=== PATIENT | male | born 1945 | race Caucasian/White ===

== ENCOUNTER 2020-03-10 17:15 | IRF | payer MEDICARE, MEDICAID, SELFPAY ==
[2020-03-10 17:20] VITALS: BP 142/84; PULSE 53; RESP 18; TEMP 37.3; O2SAT 93
--- NOTE | 2020-03-10 17:47 | PC.NURSE ---
This patient, Gene Sahu Jr., was admitted to [facility] Room 224-01. Patient/family oriented to hospital policies and general routines including ID bracelet, bed and alarms, visiting hours, pain management, procedures, bathroom and other care routines, personal items, smoking policy, room service/diet, and visiting hours. Valuables list has been completed. Information on how to activate the Rapid Response Team has been discussed. Patient/Family are encouraged to report perceived risks to care and to ask questions if they do not understand what they are told or what they should do.
[2020-03-10] MEDS: ASPIRIN 81 MG ENTERIC TABLET PO (20:32)
[2020-03-10] MEDS: lisinopriL 20 MG TABLET 40 MG PO (20:32)
[2020-03-10] MEDS: METOPROLOL TARTRATE 25 MG TABLET PO (20:33)
[2020-03-10] MEDS: SIMVASTATIN 20 MG TABLET 80 MG PO (20:35)
[2020-03-10] MEDS: GABAPENTIN 300 MG CAPSULE PO (20:35)
[2020-03-10] MEDS: PAROXETINE 10 MG TABLET 30 MG PO (20:35)
[2020-03-10 22:00] VITALS: BP 114/76; PULSE 127; RESP 18; TEMP 37.2; O2SAT 90
[2020-03-11 05:14] LABS: Basophils Percent Auto 0.4 % (0.2-1.2); Eosinophils Absolute Auto 0.3 K/mm3 (0-0.3); Eosinophils Percent Auto 4.1 % (0-4.4); Hematocrit 30.3 % (42.0-52.0); Hemoglobin 9.9 g/dL (14.0-18.0); Immature Granulocyte Absolute 0.09 K/mm3 (0.00-0.031); Immature Granulocyte Percent A 1.1 % (0-0.5); Lymphocytes Absolute Auto 0.92 K/mm3 (0.9-3.2); Lymphocytes Percent Auto 11.4 % (18.3-44.2); Mean Corpuscular HGB Conc 32.7 g/dl (32-36); Mean Corpuscular Hemoglobin 31.2 pg (26-34); Mean Corpuscular Volume 95.6 fl (80-100); Mean Platelet Volume 9.5 fl (7.4-10.4); Monocytes Absolute Auto 0.6 K/mm3 (0.1-0.6); Monocytes Percent Auto 7.1 % (2.6-8.5); Neutrophils Absolute Auto 6.1 K/mm3 (1.3-6.7); Neutrophils Percent Auto 75.9 % (45.5-73.1); Platelet Count Result 331 k/mm3 (150-375); Red Blood Count 3.17 M/mm3 (4.6-6.20); Red Cell Distribution Width 13.8 % (11.5-14.5); White Blood Count 8.1 K/mm3 (4.5-10.0)
[2020-03-11 05:40] LABS: Blood Urea Nitrogen 13 mg/dL (9-20); Calcium 8.9 mg/dL (8.4-10.2); Carbon Dioxide 26 mmol/L (22-30); Chloride 105 mmol/L (98-107); Estimated Glomerular Filt Rate > 60; Glucose 116 mg/dL (75-110); Potassium 3.5 mmol/L (3.4-5.0); Sodium 137 mmol/L (137-145)
[2020-03-11 06:00] VITALS: BP 126/59; PULSE 55; RESP 18; TEMP 36.9; O2SAT 95
[2020-03-11 08:00] VITALS: PULSE 60; RESP 18; O2SAT 95
[2020-03-11] MEDS: GABAPENTIN 300 MG CAPSULE PO ×3 (10:07→16:56)
[2020-03-11 10:08] VITALS: PULSE 60
[2020-03-11] MEDS: METOPROLOL TARTRATE 25 MG TABLET PO ×2 (10:08→20:30)
[2020-03-11] MEDS: FENOFIBRATE 160 MG TABLET PO (10:08)
[2020-03-11] MEDS: PANTOPRAZOLE 40 MG TABLET PO (10:09)
[2020-03-11] MEDS: AMLODIPINE BESYLATE 5 MG TABLET 10 MG PO (10:09)
--- NOTE | 2020-03-11 13:18 | REHAB_ITS ---
DATE OF SERVICE: PRIMARY REHABILITATION IMPAIRMENT CATEGORY: Amputation of the lower extremity with an etiological diagnosis of peripheral vascular disease. He is status post new left [id number] amputation. The patient was examined on 03/11/2020 at 11 o'clock. HISTORY OF PRESENT ILLNESS: A 74 years old right-handed male with past medical history of: 1. Peripheral vascular disease. 2. Previous right above-knee amputation. 3. Coronary artery disease with history of coronary artery bypass grafting x3. 4. Chronic obstructive pulmonary disease. 5. Peptic ulcer disease, initially presented to [facility] on 03/04/2020 via EMS, complaining of black stools along with vomiting and NG tube was placed in. Gastroenterologists was consulted. The patient was no longer vomiting and hemodynamically is stable, so it was planned to treat the patient with proton pump inhibitors along with the monitoring of the hemoglobin and avoidance of the nonsteroidal antiinflammatory medication and anticoagulation medication if possible. NG tube was discontinued. He also was noted to have urinary tract infection, for which he was treated with antibiotics. PHYSICAL EXAMINATION: Patient reveals several scars and poorly healing ulcers on the patient's left foot. Vascular Surgery was consulted, who noted extensive ischemic changes and gangrene of the left foot along with the contracture of the left knee. At that time, it was felt that limb was not salvageable, and the patient would require amputation which he did above the left knee on 01/07/2020. Postoperatively, he developed pain, anemia, hypertension, and atrial fibrillation. The pain was being managed with oral pain medication. Hemodynamically was stable, but needed to be monitored. Atrial fibrillation was treated with metoprolol to prevent the recurrence as anticoagulation was being avoided due to GI bleed. Hypertension was also treated with antihypertensive medication. The patient has not traveled outside the [place] or had contact with someone who is ill that has traveled outside the [place] in the past 21 days. He has not traveled to an area of the [place] that he experienced any known transmission of the coronavirus, has not had close personal contact with anyone that has the coronavirus. The patient himself does not have a fever, not experiencing lower respiratory illness symptoms, though he does have COPD by history along with the bronchial asthma and emphysema at the baseline. Therapy was initiated at acute care facility and the patient was transferred to us from [facility] on 03/10/2020. SURGERY OR FALL: The patient has had major surgery in the last 100 days as mentioned above, but he has had no falls in the last year and has had no fall with any injury in the last year. PAST MEDICAL HISTORY: Bilateral cataracts, hearing deficit, coronary artery disease with history of cardiac catheterization, hypertension, hyperlipidemia, myocardial infarction in 2006, peripheral vascular disease, bronchial asthma, COPD, emphysema, currently smoking, peptic ulcer disease, hernia as a child. GI bleed, hepatitis, hiatal hernia, inflammatory bowel disease, irritable bowel syndrome, liver disease, cirrhosis, pancreatitis, chronic kidney disease, nonfunctioning left kidney, urgency, back pain, right above the knee amputation, and peripheral neuropathy. PAST SURGICAL HISTORY: Peripheral bypass, right femoral endarterectomy, PIERCER stenting on 02/17/2017, appendectomy in 1962, right inguinal surgery as an , right total hip replacement, left knee surgery, triple bypass, left foot surgery, wiring bilateral jaw in 1962, partial gastrectomy in 1962, ORIF right femur in 2013, right above knee amputation 12/29/2017, left lower extremity angiogram with stenting on 09/28/2018.
[2020-03-11 14:00] VITALS: BP 114/61; PULSE 70; RESP 18; TEMP 36.6; O2SAT 96
[2020-03-11 20:30] VITALS: PULSE 70
[2020-03-11] MEDS: lisinopriL 20 MG TABLET 40 MG PO (20:30)
[2020-03-11] MEDS: ASPIRIN 81 MG ENTERIC TABLET PO (20:30)
[2020-03-11] MEDS: SIMVASTATIN 20 MG TABLET 80 MG PO (20:30)
[2020-03-11] MEDS: PAROXETINE 10 MG TABLET 30 MG PO (20:30)
[2020-03-11 22:00] VITALS: BP 122/56; PULSE 68; RESP 18; TEMP 37; O2SAT 98
[2020-03-12 06:00] VITALS: BP 135/50; PULSE 62; RESP 20; TEMP 37.2; O2SAT 95
[2020-03-12] MEDS: GABAPENTIN 300 MG CAPSULE PO ×3 (08:36→17:22)
[2020-03-12] MEDS: PANTOPRAZOLE 40 MG TABLET PO (08:36)
[2020-03-12] MEDS: FENOFIBRATE 160 MG TABLET PO (08:36)
[2020-03-12] MEDS: AMLODIPINE BESYLATE 5 MG TABLET 10 MG PO (08:36)
[2020-03-12 08:37] VITALS: PULSE 62
[2020-03-12] MEDS: METOPROLOL TARTRATE 25 MG TABLET PO ×2 (08:37→20:32)
[2020-03-12 14:00] VITALS: BP 96/60; PULSE 70; RESP 18; TEMP 37; O2SAT 96
[2020-03-12 20:32] VITALS: PULSE 78
[2020-03-12] MEDS: PAROXETINE 10 MG TABLET 30 MG PO (20:32)
[2020-03-12] MEDS: ASPIRIN 81 MG ENTERIC TABLET PO (20:32)
[2020-03-12] MEDS: SIMVASTATIN 20 MG TABLET 80 MG PO (20:32)
[2020-03-12] MEDS: lisinopriL 20 MG TABLET 40 MG PO (20:32)
[2020-03-12 22:00] VITALS: BP 110/65; PULSE 75; RESP 19; TEMP 38.2; O2SAT 91
[2020-03-13 06:00] VITALS: BP 140/64; PULSE 66; RESP 19; TEMP 36.9; O2SAT 90
[2020-03-13] MEDS: GABAPENTIN 300 MG CAPSULE PO ×3 (08:29→16:53)
[2020-03-13 08:30] VITALS: PULSE 72
[2020-03-13] MEDS: METOPROLOL TARTRATE 25 MG TABLET PO ×2 (08:30→20:50)
[2020-03-13] MEDS: FENOFIBRATE 160 MG TABLET PO (08:35)
[2020-03-13] MEDS: ERGOCALCIFEROL 50,000 UNIT CAPSULE 50000 UNITS PO (08:35)
[2020-03-13] MEDS: PANTOPRAZOLE 40 MG TABLET PO (08:35)
[2020-03-13] MEDS: AMLODIPINE BESYLATE 5 MG TABLET 10 MG PO (08:35)
[2020-03-13 10:26] VITALS: O2SAT 97
--- NOTE | 2020-03-13 11:38 | WPDNEURORHBP ---
Subjective Date/time seen: new left above knee amputation with resultant bilateral [id number]/[id number]/20 11:38 Review of Systems Review of Systems: All systems reviewed & are unremarkable except as noted in HPI and below Functional Status Transfers Ability Ability to Transfer In/Out of Chair: Maximum Assistance X 1 Exam Const: General: cooperative, healthy appearing, comfortable and no acute distress Nutritional Appearance: average body habitus Orientation/consciousness: oriented to person, oriented to place and oriented to time Limitations: no limitations HENMT: Head: normocephalic Ears: hearing grossly normal bilaterally General nose exam: Normal external nose present Face and sinus: normal facial exam Eyes: General: appearance normal, both eyes and all related structures Neck: Neck: full ROM Resp: Effort & Inspection: normal respiratory effort and able to speak in complete sentences Auscultation: clear to auscultation bilaterally Cardio: Rate: regular rate Rhythm: regular rhythm GI: Auscultation: normal bowel sounds Skin: General skin exam: no rashes or lesions noted Neuro: General: patient oriented x3 and moves all extremities Cranial nerves: Yes CN's II-XII intact bilaterally, Yes Equal, round and reactive pupils present, Yes Nystagmus not present, Yes Normal facial strength present, Yes Midline tongue present, Yes Symmetric palate elevation present, Yes Ability to bilaterally rotate head present and Yes Ability to bilaterally elevate shoulders present Cognition (Neuro): normal cognition Speech: normal speech Motor exam (neuro): Normal motor muscle tone present throughout (bilateral above knee amputee) Coordination: [id number] test normal Psych: Appearance: grossly normal Speech and movement: Normal speech and movement present Affect: normal affect Attitude: cooperative Thought process: Normal thought process present Thought content: Yes Normal thought content present Insight: Good insight present (Psych) Objective Data Vital Signs Vital Signs: Vital Signs - 24 hr 03/12/20 14:00 03/12/20 20:32 03/12/20 22:00 Temperature 37.0 C 38.2 C H Pulse Rate 70 78 75 Respiratory Rate 18 19 Blood Pressure 96/60 L 110/65 Pulse Oximetry 96 91 03/13/20 06:00 03/13/20 08:30 03/13/20 10:26 Temperature 36.9 C Pulse Rate 66 72 Respiratory Rate 19 Blood Pressure 140/64 Pulse Oximetry 90 97 Intake/Output Intake/Output: Intake & Output 0403/11/20 03/12/20 03/13/20 23:59 23:59 23:59 23:59 Intake Total 900 440 240 Balance 900 440 240 Meds/Results Medications: Active Medications Generic Name Dose Route Start Last Admin Trade Name Freq PRN Reason Stop Dose Admin Hydrocodone Bitart/Acetaminophen 1 tab 03/10/20 18:11 03/13/20 05:50 [place] 7.5-325 Mg PO 1 tab Q4H PRN Administration Pain (Scale Score 7-10) Albuterol 2 puff 03/10/20 18:30 Proventil Hfa INHALATION QID PRN Shortness Of Breath Or Wheezing Amlodipine Besylate 10 mg 03/11/20 09:00 03/13/20 08:35 Norvasc PO 10 mg DAILY CHUNG Administration Aspirin 81 mg 03/10/20 21:00 03/12/20 20:32 Aspirin Ec PO 81 mg HS CHUNG Administration Ergocalciferol 50,000 unit 03/13/20 09:00 03/13/20 08:35 Drisdol PO 50,000 unit Mo@0900 CHUNG Administration Fenofibrate 160 mg 03/11/20 09:00 03/13/20 08:35 Fenofibrate PO 160 mg DAILY CHUNG Administration Gabapentin 300 mg 03/10/20 18:35 03/13/20 08:29 Neurontin PO 300 mg TID CHUNG Administration Lisinopril 40 mg 03/10/20 21:00 03/12/20 20:32 Prinivil PO 40 mg HS CHUNG Administration Metoprolol Tartrate 25 mg 03/10/20 21:00 03/13/20 08:30 Lopressor PO 25 mg Q12HR CHUNG Administration Naproxen 500 mg 03/10/20 18:11 Naproxen PO BID PRN Pain (Scale Score 4-6) Nitroglycerin 0.4 mg 03/10/20 18:11 Nitrostat Subl 0.4 Mg (1/150) SUBLINGUAL Q5MIN PRN Chest Pain
[2020-03-13 12:44] VITALS: BMI 56.7
[2020-03-13 14:00] VITALS: BP 101/75; PULSE 68; RESP 20; TEMP 36.6; O2SAT 94
--- NOTE | 2020-03-13 16:11 | RPD ---
INDIVIDUALIZED PLAN OF CARE FOR Gene Sahu Jr. Brief Synthesis of Pre-Admission Screen, Post-Admission Evaluation and Therapy Evaluations: The patient presents to rehab with peripheral vascular disease s/p left AKA. Comorbidities include acute pain, hypertension, hyperlipidemia, coronary artery disease, peptic ulcer disease, hematemesis, melena, renal calculi, chronic obstructive pulmonary disease, hard of hearing, asthma, emphysema, hiatal hernia, inflammatory bowel disease, irritable bowel syndrome, liver disease, chronic kidney disease, previous right AKA, new left AKA, peripheral neuropathy, acute blood loss anemia, and urinary tract infection. The patient requires physician services for medical oversight, management of post-op complications in the setting of present comorbidities, and pain management. Post-op complications have included acute postoperative pain, acute blood loss anemia, hypertension, and atrial fibrillation. The patient requires nursing services for anticoagulation therapy, DVT prophylactics, infection protection, medication management and education, pressure relief, and wound care. The patient will be taught how to wrap the residual limb and how to monitor their skin for promotion of healing. Deficits include:ADLs, Balance, Endurance, Family Training/Education, Mobility, Pain Management, ROM, Safety, Strength, and Transfers Supply Clerk/Case Management for: Discharge Planning and Patient/Family Counseling Physical Therapy: 5 days per week for 90 minutes. Treatments may include: Therapeutic Exercise, Gait Training, Neuromuscular Re-education, Transfer Training, Community Reintegration, Bed Mobility, Patient/Family Education, Wheelchair Mobility Group Therapy/Concurrent Therapy Rationales: -Improve attention span during functional activities in a distracted environment. -Enhance problem solving and/or adequate judgment skills during functional activities in a distracted environment. -Promote increased safety awareness in a distracted environment to reduce fall risk with functional tasks, transfers, and ambulation to allow a more safe, self-sufficient return to the home environment. -Improve dynamic balance skills to promote safety and independence with functional activities in a distracted environment for maximum gain. Occupational Therapy: 5 days per week for 90 minutes. Treatments may include: Therapeutic Exercise, Therapeutic Activity, Cognitive Training, Self-Care Transfer Training, Community Reintegration, Home Management, Patient/Family Education, Wheelchair Mobility Training, Energy Conservation Training Group Therapy/Concurrent Therapy Rationales: -Allow therapist to observe and teach generalization and carry-over of skills learned in individual therapy. -Enhance problem solving and sequencing skills during therapeutic activities in a distracted environment. -Promote increased safety awareness in a realistic setting to reduce fall risk with functional tasks due to visual and verbal distractions. -Increase functional level with ADLs, ADL transfers and use of adaptive equipment through therapeutic activities with others while promoting safety to allow a more safe, self-sufficient return home. Medical Prognosis: Good Anticipated Length of Stay: 10 days Rehab Goals: Eating Goal: 06-Independent Oral Hygiene Goal: 06-Independent Toileting Hygiene Goal: 06-Independent Shower/Bathe Self Goal: 06-Independent Upper Body Dressing Goal: 06-Independent Lower Body Dressing Goal: 06-Independent Putting On/Taking Off Footwear Goal: 09-Not Applicable Rolling Left and Right Goal: 06-Independent Sit to Lying Goal: 06-Independent Lying to Sitting on Side of Bed Goal: 06-Independent Sit to Stand Goal: 09-Not Applicable Chair/Mdr-wy-Hoife Transfer Goal: 06-Independent Toilet Transfer Goal: 06-Independent Car Transfer Goal: 03-Partial/Moderate Assistance Walk 10' Goal: 09-Not Applicable Walk 50' with Two Turns Goal: 09-Not Applicable Walk
[2020-03-13] MEDS: PAROXETINE 10 MG TABLET 30 MG PO (20:49)
[2020-03-13 20:50] VITALS: PULSE 72
[2020-03-13] MEDS: ASPIRIN 81 MG ENTERIC TABLET PO (20:50)
[2020-03-13] MEDS: SIMVASTATIN 20 MG TABLET 80 MG PO (20:50)
[2020-03-13] MEDS: lisinopriL 20 MG TABLET 40 MG PO (20:50)
[2020-03-13 21:19] VITALS: BP 141/56; PULSE 62; RESP 16; TEMP 36; O2SAT 99
[2020-03-14] VITALS (8 sets, daily range): BP systolic 109–148; BP diastolic 51–53; PULSE 67–101; RESP 18–20; TEMP 36.3–36.9; O2SAT 92–100
[2020-03-14] MEDS: PANTOPRAZOLE 40 MG TABLET PO (08:33)
[2020-03-14] MEDS: GABAPENTIN 300 MG CAPSULE PO ×3 (08:33→17:53)
[2020-03-14] MEDS: AMLODIPINE BESYLATE 5 MG TABLET 10 MG PO (08:33)
[2020-03-14] MEDS: METOPROLOL TARTRATE 25 MG TABLET PO ×2 (08:34→21:00)
[2020-03-14] MEDS: FENOFIBRATE 160 MG TABLET PO (08:34)
--- NOTE | 2020-03-14 12:53 | WPDNEURORHBP ---
Subjective Date/time seen: 03/14/20 12:53 Interval history: this 68 sink year old gentleman who is here after having had a fresh and new left with a new mutation superimposed on the previous right above the knee amputation related to significant peripheral vascular disease. The patient pain is fairly under control he does have the comorbidity of the peripheral vascular disease coronary artery disease with history of coronary artery bypass chronic obstructive pulmonary disease and peptic ulcer disease The patient denies any fever chills sore throat headache nausea vomiting double vision blurred vision chest pain and shortness of breath diarrhea abdominal pain or constipation Review of Systems Review of Systems: All systems reviewed & are unremarkable except as noted in HPI and below Functional Status Transfers Ability Ability to Transfer In/Out of Chair: Contact Guard Exam Const: General: comfortable and no acute distress HENMT: General nose exam: Normal nares present Mouth: Yes moist mucous membranes Eyes: General: appearance normal, both eyes and all related structures Neck: Neck: supple and no JVD Resp: Effort & Inspection: normal respiratory effort Other: generalized mild rhonchi Cardio: Rate: regular rate Rhythm: regular rhythm GI: GI Palp: Yes Soft to palpation Auscultation: normal bowel sounds Skin: General skin exam: normal color and no rashes or lesions noted Neuro: Other: patient is awake and alert Kell to time place person has normal speech and language function normal cranial exam webber upper extremity strength is 4.5/5 lower extremity is stump strength is 4- 4 5 evidence of peripheral vascular disease and the fresh left above the knee amputation Extrem: Other: bilateral above the amputation Psych: Mental Status: mental status grossly normal Objective Data Vital Signs Vital Signs: Vital Signs - 24 hr 03/13/20 14:00 03/13/20 20:50 03/13/20 21:19 Temperature 36.6 C 36.0 C L Pulse Rate 68 72 62 Respiratory Rate 20 16 Blood Pressure 101/75 141/56 H Pulse Oximetry 94 99 03/14/20 06:00 03/14/20 08:00 03/14/20 08:34 Temperature 36.3 C L Pulse Rate 76 76 76 Respiratory Rate 20 20 Blood Pressure 132/53 L Pulse Oximetry 96 96 03/14/20 11:00 Temperature Pulse Rate 91 Respiratory Rate Blood Pressure Pulse Oximetry 100 Intake/Output Intake/Output: Intake & Output 03/11/20 03/12/20 03/13/20 03/14/20 23:59 23:59 23:59 23:59 Intake Total 900 440 840 240 Balance 900 440 840 240 Meds/Results Medications: Active Medications Generic Name Dose Route Start Last Admin Trade Name Freq PRN Reason Stop Dose Admin Hydrocodone Bitart/Acetaminophen 1 tab 03/10/20 18:11 03/14/20 04:38 [place] 7.5-325 Mg PO 1 tab Q4H PRN Administration Pain (Scale Score 7-10) Albuterol 2 puff 03/10/20 18:30 Proventil Hfa INHALATION QID PRN Shortness Of Breath Or Wheezing Amlodipine Besylate 10 mg 03/11/20 09:00 03/14/20 08:33 Norvasc PO 10 mg DAILY CHUNG Administration Aspirin 81 mg 03/10/20 21:00 03/13/20 20:50 Aspirin Ec PO 81 mg HS CHUNG Administration Ergocalciferol 50,000 unit 03/13/20 09:00 03/13/20 08:35 Drisdol PO 50,000 unit Mo@0900 CHUNG Administration Fenofibrate 160 mg 03/11/20 09:00 03/14/20 08:34 Fenofibrate PO 160 mg DAILY CHUNG Administration Gabapentin 300 mg 03/10/20 18:35 03/14/20 08:33 Neurontin PO 300 mg TID CHUNG Administration Lisinopril 40 mg 03/10/20 21:00 03/13/20 20:50 Prinivil PO 40 mg HS CHUNG Administration Metoprolol Tartrate 25 mg 03/10/20 21:00 03/14/20 08:34 Lopressor PO 25 mg Q12HR CHUNG Administration Naproxen 500 mg 03/10/20 18:11 Naproxen PO BID PRN Pain (Scale Score 4-6) Nitroglycerin 0.4 mg 03/10/20 18:11 Nitrostat Subl 0.4 Mg (1/150) SUBLINGUAL Q5MIN PRN Chest Pain Pantoprazole Sodium 40 mg 03/11/20 09:00
[2020-03-14] MEDS: ASPIRIN 81 MG ENTERIC TABLET PO (20:58)
[2020-03-14] MEDS: lisinopriL 20 MG TABLET 40 MG PO (20:58)
[2020-03-14] MEDS: SIMVASTATIN 20 MG TABLET 80 MG PO (21:02)
[2020-03-14] MEDS: PAROXETINE 10 MG TABLET 30 MG PO (21:02)
[2020-03-15 06:00] VITALS: BP 149/60; PULSE 98; RESP 18; TEMP 36.9; O2SAT 89
[2020-03-15] MEDS: NAPROXEN 500 MG TABLET PO (06:33)
[2020-03-15 08:00] VITALS: PULSE 92; RESP 18; O2SAT 89
--- NOTE | 2020-03-15 08:16 | PCPTNOTE ---
Addendum entered by Carmen Palmer, CARBONATION EQUIPMENT TENDER 03/16/20 16:07: Patient will need 32 inch length slide board for safe wheelchair to car transfer. Original Note: Gene Sahu Jr. was evaluated for a slide board on 03/15/2020 by this physical therapist property management assistant. The slide board will resolve patient's mobility limitations and will be used for ADL's within the home. The patient can safely use the slide board. ?The slide board will resolve the patient?s mobility deficits, including decreased strength, decreased endurance and decreased balance.
[2020-03-15] MEDS: AMLODIPINE BESYLATE 5 MG TABLET 10 MG PO (08:45)
[2020-03-15] MEDS: GABAPENTIN 300 MG CAPSULE PO ×3 (08:45→17:17)
[2020-03-15] MEDS: PANTOPRAZOLE 40 MG TABLET PO (08:45)
[2020-03-15 08:50] VITALS: PULSE 92
[2020-03-15] MEDS: METOPROLOL TARTRATE 25 MG TABLET PO ×2 (08:50→20:13)
[2020-03-15] MEDS: FENOFIBRATE 160 MG TABLET PO (08:51)
[2020-03-15 14:00] VITALS: BP 111/57; PULSE 74; RESP 20; TEMP 36.7; O2SAT 94
--- NOTE | 2020-03-15 14:51 | WPDNEURORHBP ---
Subjective Date/time seen: 03/15/20 14:51 Interval history: this very pleasant 74-year-old gentleman is here after having had left above the knee amputation with previous right above the knee amputation a few years ago is doing fairly well happy with the care and denies any fever chills sore throat headache nausea vomiting diarrhea abdominal pain Review of Systems Review of Systems: All systems reviewed & are unremarkable except as noted in HPI and below Functional Status Transfers Ability Ability to Transfer In/Out of Chair: Contact Guard Exam Const: General: comfortable and no acute distress HENMT: General nose exam: Normal nares present Mouth: Yes moist mucous membranes Eyes: General: appearance normal, both eyes and all related structures Neck: Neck: supple and no JVD Resp: Effort & Inspection: normal respiratory effort Auscultation: clear to auscultation bilaterally Cardio: Rate: regular rate Rhythm: regular rhythm GI: GI Palp: Yes Soft to palpation Auscultation: normal bowel sounds Skin: General skin exam: normal color and no rashes or lesions noted Neuro: Other: patient is awake and alert well oriented time place and person is speech and language function normal cranial exam webber normal upper extremity strength is 4.5/5 the stumps of the lower extremity is 4- over 5 he is engage in therapy and moving forward Extrem: Other: the left above the knee amputation site is clean Psych: Mental Status: mental status grossly normal Objective Data Vital Signs Vital Signs: Vital Signs - 24 hr 03/14/20 20:28 03/14/20 21:00 03/14/20 22:00 Temperature 36.9 C Pulse Rate 101 H 101 H Respiratory Rate 19 Blood Pressure 148/52 H Pulse Oximetry 93 92 03/15/20 06:00 03/15/20 08:00 03/15/20 08:50 Temperature 36.9 C Pulse Rate 98 92 92 Respiratory Rate 18 18 Blood Pressure 149/60 H Pulse Oximetry 89 L 89 L 03/15/20 14:00 Temperature 36.7 C Pulse Rate 74 Respiratory Rate 20 Blood Pressure 111/57 L Pulse Oximetry 94 Intake/Output Intake/Output: Intake & Output 03/12/20 03/13/20 03/14/20 03/15/20 23:59 23:59 23:59 23:59 Intake Total 440 840 560 480 Balance 440 840 560 480 Meds/Results Medications: Active Medications Generic Name Dose Route Start Last Admin Trade Name Freq PRN Reason Stop Dose Admin Hydrocodone Bitart/Acetaminophen 1 tab 03/10/20 18:11 03/14/20 23:38 [place] 7.5-325 Mg PO 1 tab Q4H PRN Administration Pain (Scale Score 7-10) Albuterol 2 puff 03/10/20 18:30 Proventil Hfa INHALATION QID PRN Shortness Of Breath Or Wheezing Amlodipine Besylate 10 mg 03/11/20 09:00 03/15/20 08:45 Norvasc PO 10 mg DAILY CHUNG Administration Aspirin 81 mg 03/10/20 21:00 03/14/20 20:58 Aspirin Ec PO 81 mg HS CHUNG Administration Ergocalciferol 50,000 unit 03/13/20 09:00 03/13/20 08:35 Drisdol PO 50,000 unit Mo@0900 CHUNG Administration Fenofibrate 160 mg 03/11/20 09:00 03/15/20 08:51 Fenofibrate PO 160 mg DAILY CHUNG Administration Gabapentin 300 mg 03/10/20 18:35 03/15/20 13:43 Neurontin PO 300 mg TID CHUNG Administration Lisinopril 40 mg 03/10/20 21:00 03/14/20 20:58 Prinivil PO 40 mg HS CHUNG Administration Metoprolol Tartrate 25 mg 03/10/20 21:00 03/15/20 08:50 Lopressor PO 25 mg Q12HR CHUNG Administration Naproxen 500 mg 03/10/20 18:11 03/15/20 06:33 Naproxen PO 500 mg BID PRN Administration Pain (Scale Score 4-6) Nitroglycerin 0.4 mg 03/10/20 18:11 Nitrostat Subl 0.4 Mg (1/150) SUBLINGUAL Q5MIN PRN Chest Pain Pantoprazole Sodium 40 mg 03/11/20 09:00 03/15/20 08:45 Protonix PO 40 mg QAM CHUNG Administration Paroxetine HCl 30 mg 03/10/20 21:00 03/14/20 21:02 Paxil PO 30 mg HS CHUNG Administration Simvastatin 80 mg 03/10/20 21:00 03/14/20 21:02 Zocor PO 80 mg HS CHUNG Administration Tiotropium [place] 1
[2020-03-15] MEDS: ASPIRIN 81 MG ENTERIC TABLET PO (20:12)
[2020-03-15 20:13] VITALS: PULSE 88
[2020-03-15] MEDS: lisinopriL 20 MG TABLET 40 MG PO (20:13)
[2020-03-15] MEDS: SIMVASTATIN 20 MG TABLET 80 MG PO (20:13)
[2020-03-15] MEDS: PAROXETINE 10 MG TABLET 30 MG PO (20:13)
[2020-03-15 22:00] VITALS: BP 144/59; PULSE 88; RESP 19; TEMP 36.8; O2SAT 98
[2020-03-16] VITALS (8 sets, daily range): BP systolic 116–147; BP diastolic 56–75; PULSE 70–92; RESP 18–20; TEMP 36.6–37.1; O2SAT 92–99
[2020-03-16] MEDS: METOPROLOL TARTRATE 25 MG TABLET PO ×2 (08:25→20:18)
[2020-03-16] MEDS: GABAPENTIN 300 MG CAPSULE PO ×3 (08:25→17:38)
[2020-03-16] MEDS: AMLODIPINE BESYLATE 5 MG TABLET 10 MG PO (08:26)
[2020-03-16] MEDS: PANTOPRAZOLE 40 MG TABLET PO (08:26)
[2020-03-16] MEDS: FENOFIBRATE 160 MG TABLET PO (08:26)
--- NOTE | 2020-03-16 11:41 | WPDNEURORHBP ---
Subjective Date/time seen: 03/16/20 11:41 Interval history: this 74-year-old gentleman is here after having had left above the knee amputation and the previous right above the knee amputation few years ago his doing of well in the rehab denies any complaints particularly denies any fever chills sore throat chest pain shortness of breath headache nausea and vomiting his still requiring the 2 liters of oxygen because once he does the therapy his oxygen saturation round drops to 87 % Review of Systems Review of Systems: All systems reviewed & are unremarkable except as noted in HPI and below Functional Status Transfers Ability Ability to Transfer In/Out of Chair: Contact Guard Exam Const: General: comfortable and no acute distress HENMT: General nose exam: Normal nares present Mouth: Yes moist mucous membranes Eyes: General: appearance normal, both eyes and all related structures Neck: Neck: supple and no JVD Resp: Effort & Inspection: normal respiratory effort Auscultation: clear to auscultation bilaterally Cardio: Rate: regular rate Rhythm: regular rhythm GI: GI Palp: Yes Soft to palpation Auscultation: normal bowel sounds Skin: General skin exam: normal color and no rashes or lesions noted Neuro: Other: patient's mental status is normal cranial exam is in normal upper extremity strength is 4.5/5 of the lower stumps above the knee post amputation are clean he needs still assistance in the lot of activities of daily living Extrem: Other: bilateral above the knee amputation Psych: Mental Status: mental status grossly normal Objective Data Vital Signs Vital Signs: Vital Signs - 24 hr 03/15/20 14:00 03/15/20 20:13 03/15/20 22:00 Temperature 36.7 C 36.8 C Pulse Rate 74 88 88 Respiratory Rate 20 19 Blood Pressure 111/57 L 144/59 H Pulse Oximetry 94 98 03/16/20 06:00 03/16/20 08:00 03/16/20 08:25 Temperature 37.1 C Pulse Rate 88 88 88 Respiratory Rate 18 18 Blood Pressure 147/61 H Pulse Oximetry 97 97 Intake/Output Intake/Output: Intake & Output 03/13/20 03/14/20 03/15/20 03/16/20 23:59 23:59 23:59 23:59 Intake Total 840 560 840 240 Balance 840 560 840 240 Meds/Results Medications: Active Medications Generic Name Dose Route Start Last Admin Trade Name Freq PRN Reason Stop Dose Admin Hydrocodone Bitart/Acetaminophen 1 tab 03/10/20 18:11 03/15/20 20:17 [place] 7.5-325 Mg PO 1 tab Q4H PRN Administration Pain (Scale Score 7-10) Albuterol 2 puff 03/10/20 18:30 Proventil Hfa INHALATION QID PRN Shortness Of Breath Or Wheezing Amlodipine Besylate 10 mg 03/11/20 09:00 03/16/20 08:26 Norvasc PO 10 mg DAILY CHUNG Administration Aspirin 81 mg 03/10/20 21:00 03/15/20 20:12 Aspirin Ec PO 81 mg HS CHUNG Administration Ergocalciferol 50,000 unit 03/13/20 09:00 03/13/20 08:35 Drisdol PO 50,000 unit Mo@0900 CHUNG Administration Fenofibrate 160 mg 03/11/20 09:00 03/16/20 08:26 Fenofibrate PO 160 mg DAILY CHUNG Administration Gabapentin 300 mg 03/10/20 18:35 03/16/20 08:25 Neurontin PO 300 mg TID CHUNG Administration Lisinopril 40 mg 03/10/20 21:00 03/15/20 20:13 Prinivil PO 40 mg HS CHUNG Administration Metoprolol Tartrate 25 mg 03/10/20 21:00 03/16/20 08:25 Lopressor PO 25 mg Q12HR CHUNG Administration Naproxen 500 mg 03/10/20 18:11 03/15/20 06:33 Naproxen PO 500 mg BID PRN Administration Pain (Scale Score 4-6) Nitroglycerin 0.4 mg 03/10/20 18:11 Nitrostat Subl 0.4 Mg (1/150) SUBLINGUAL Q5MIN PRN Chest Pain Pantoprazole Sodium 40 mg 03/11/20 09:00 03/16/20 08:26 Protonix PO 40 mg QAM CHUNG Administration Paroxetine HCl 30 mg 03/10/20 21:00 03/15/20 20:13 Paxil PO 30 mg HS CHUNG Administration Simvastatin 80 mg 03/10/20 21:00 03/15/20 20:13 Zocor PO 80 mg HS CHUNG Administration Tiotropium [place] 1 cap 03/11/20 09:0
--- NOTE | 2020-03-16 16:08 | PCPTNOTE ---
Carmen Palmer PTA completed an inpatient rehab wheelchair evaluation on Gene Sahu Jr. on 03/16/2020. The patient is unable to safely and independently ambulate household distances due to their current impairments. Their diagnosis is L AKA and their impairments include decreased strength, decreased endurance, decreased range of motion, decreased balance and lower extremity weakness. Gene's weight bearing status is [id number] on bilateral lower legs. The patient demonstrates significant functional mobility limitations that impair their ability to participate in mobility-related activities of daily living (MRADLs), including toileting, feeding, dressing, grooming, and bathing in the customary locations in the home. These limitations cannot be sufficiently resolved by the use of an appropriately fitted cane or walker. It is recommended that the patient utilize a wheelchair for functional mobility within the home in order to facilitate optimal safety, independence and participation in all MRADL's and adequately access their home environment on a regular basis. The patient's home provides adequate access between rooms, maneuvering space, and surfaces to accommodate the recommended wheelchair. The use of a wheelchair for functional mobility is strongly recommended and the patient is receptive to using the wheelchair. The use of this wheelchair will significantly improve the patient's ability to participate in MRADLS and the patient will use it on a regular basis in the home. This will facilitate optimal safety, independence, and participation. The patient has demonstrated sufficient physical and mental capabilities needed to safely propel a manual wheelchair that is provided in the home during a typical day. Recommended Wheelchair Frame: standard Recommended Wheelchair Size: 18x18 Recommended Wheelchair Cushion:standard Wheelchair Leg Recommendations: none - Anti-tippers are recommended due to patient demonstrating increased risk for falls. They would benefit from anti-tippers with added safety and stabilization. -Adjustable arm height is recommended because the patient requires an arm height that is different than that which is available using non-adjustable arms. The patient spends at least 2 hours per day in the wheelchair. Carmen Barretokleber HAYDEN 03/16/2020 Evaluating Therapist Date I agree with and certify that the above recommendation is medically necessary. Referring Physician Date I agree with and certify that the above recommendation is medically necessary. Referring Physician Date
[2020-03-16] MEDS: SIMVASTATIN 20 MG TABLET 80 MG PO (20:17)
[2020-03-16] MEDS: lisinopriL 20 MG TABLET 40 MG PO (20:18)
[2020-03-16] MEDS: ASPIRIN 81 MG ENTERIC TABLET PO (20:18)
[2020-03-16] MEDS: PAROXETINE 10 MG TABLET 30 MG PO (20:18)
[2020-03-17 06:00] VITALS: BP 155/52; PULSE 83; RESP 16; TEMP 36.1; O2SAT 97
[2020-03-17 08:19] VITALS: O2SAT 95
[2020-03-17 08:35] VITALS: PULSE 83
[2020-03-17] MEDS: FENOFIBRATE 160 MG TABLET PO (08:35)
[2020-03-17] MEDS: METOPROLOL TARTRATE 25 MG TABLET PO ×2 (08:35→20:55)
[2020-03-17] MEDS: AMLODIPINE BESYLATE 5 MG TABLET 10 MG PO (08:35)
[2020-03-17] MEDS: PANTOPRAZOLE 40 MG TABLET PO (08:35)
[2020-03-17] MEDS: GABAPENTIN 300 MG CAPSULE PO ×3 (08:35→16:44)
[2020-03-17 14:00] VITALS: BP 146/62; PULSE 80; RESP 20; TEMP 36.6; O2SAT 89
--- NOTE | 2020-03-17 14:04 | WPDNEURORHBP ---
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 he denies any new complaints doing fairly well in the therapy improving and working with therapy eagerly to be ready to be going home no chest pain no shortness of breath no fever no chills no sore throat abdominal pain diarrhea or vomiting Review of Systems Review of Systems: All systems reviewed & are unremarkable except as noted in HPI and below Functional Status Transfers Ability Ability to Transfer In/Out of Chair: Contact Guard Exam Const: General: comfortable and no acute distress HENMT: General nose exam: Normal nares present Mouth: Yes moist mucous membranes Eyes: General: appearance normal, both eyes and all related structures Neck: Neck: supple and no JVD Resp: Effort & Inspection: normal respiratory effort Auscultation: clear to auscultation bilaterally Cardio: Rate: regular rate Rhythm: regular rhythm GI: GI Palp: Yes Soft to palpation Auscultation: normal bowel sounds Skin: General skin exam: normal color Neuro: Other: patient's mental status is normal cranial examination normal upper extremity strength is fairly decent he is handicapped by bilateral [id number] rather amputation, however working quite well Extrem: Other: the above the knee amputation stump is clean Psych: Mental Status: mental status grossly normal Objective Data Vital Signs Vital Signs: Vital Signs - 24 hr 03/16/20 19:58 03/16/20 20:18 03/16/20 22:00 Temperature 36.6 C Pulse Rate 88 92 Respiratory Rate 20 Blood Pressure 120/56 L Pulse Oximetry 95 96 03/17/20 06:00 03/17/20 08:19 03/17/20 08:35 Temperature 36.1 C L Pulse Rate 83 83 Respiratory Rate 16 Blood Pressure 155/52 H Pulse Oximetry 97 95 Intake/Output Intake/Output: Intake & Output 03/14/20 03/15/20 03/16/20 03/17/20 23:59 23:59 23:59 23:59 Intake Total 560 840 960 480 Balance 560 840 960 480 Meds/Results Medications: Active Medications Generic Name Dose Route Start Last Admin Trade Name Freq PRN Reason Stop Dose Admin Hydrocodone Bitart/Acetaminophen 1 tab 03/10/20 18:11 03/16/20 20:17 [place] 7.5-325 Mg PO 1 tab Q4H PRN Administration Pain (Scale Score 7-10) Albuterol 2 puff 03/10/20 18:30 Proventil Hfa INHALATION QID PRN Shortness Of Breath Or Wheezing Amlodipine Besylate 10 mg 03/11/20 09:00 03/17/20 08:35 Norvasc PO 10 mg DAILY CHUNG Administration Aspirin 81 mg 03/10/20 21:00 03/16/20 20:18 Aspirin Ec PO 81 mg HS CHUNG Administration Ergocalciferol 50,000 unit 03/13/20 09:00 03/13/20 08:35 Drisdol PO 50,000 unit Mo@0900 CHUNG Administration Fenofibrate 160 mg 03/11/20 09:00 03/17/20 08:35 Fenofibrate PO 160 mg DAILY CHUNG Administration Gabapentin 300 mg 03/10/20 18:35 03/17/20 12:03 Neurontin PO 300 mg TID CHUNG Administration Lisinopril 40 mg 03/10/20 21:00 03/16/20 20:18 Prinivil PO 40 mg HS CHUNG Administration Metoprolol Tartrate 25 mg 03/10/20 21:00 03/17/20 08:35 Lopressor PO 25 mg Q12HR CHUNG Administration Naproxen 500 mg 03/10/20 18:11 03/15/20 06:33 Naproxen PO 500 mg BID PRN Administration Pain (Scale Score 4-6) Nitroglycerin 0.4 mg 03/10/20 18:11 Nitrostat Subl 0.4 Mg (1/150) SUBLINGUAL Q5MIN PRN Chest Pain Pantoprazole Sodium 40 mg 03/11/20 09:00 03/17/20 08:35 Protonix PO 40 mg QAM CHUNG Administration Paroxetine HCl 30 mg 03/10/20 21:00 03/16/20 20:18 Paxil PO 30 mg HS CHUNG Administration Simvastatin 80 mg 03/10/20 21:00 03/16/20 20:17 Zocor PO 80 mg HS CHUNG Administration Tiotropium [place] 1 cap 03/11/20 09:00 03/17/20 08:17 Spiriva INHALATION 1 cap DAILY CHUNG Administration Progress Note: A&P Assessment and
--- NOTE | 2020-03-17 14:19 | PCDIET ---
Nutrition Follow-Up Complete: Nutrition Diagnosis: Increased protein/calorie needs related to increased demands for wound healing as evidenced by recent BKA. Nutrition Goal: Patient to consume 75% of meals/supplement or more Goal met. Patient with average of 80% of meals consumed since last review. Regular diet with Mateusz BID appropriate. Last recorded weight is 64.6 kg. Recommend obtaining weekly weight. Bowel Motility: +BM on 03/13/20. Labs Reviewed: No new lab results available. Meds Noted: Drisdol, Protonix, Proventil Additional Notes: Left leg incision post-op. No other skin breakdown reported. Nutrition Monitoring and Evaluation: Follow up in 5 days.
[2020-03-17] MEDS: PAROXETINE 10 MG TABLET 30 MG PO (20:54)
[2020-03-17 20:55] VITALS: PULSE 82
[2020-03-17] MEDS: lisinopriL 20 MG TABLET 40 MG PO (20:55)
[2020-03-17] MEDS: ASPIRIN 81 MG ENTERIC TABLET PO (20:55)
[2020-03-17] MEDS: SIMVASTATIN 20 MG TABLET 80 MG PO (20:55)
[2020-03-17 22:00] VITALS: BP 128/51; PULSE 78; RESP 19; TEMP 36.6; O2SAT 98
[2020-03-18] VITALS (7 sets, daily range): BP systolic 104–115; BP diastolic 50–99; PULSE 53–81; RESP 18–20; TEMP 36.5–36.9; O2SAT 95–99
[2020-03-18 04:54] LABS: Basophils Percent Auto 0.6 % (0.2-1.2); Eosinophils Absolute Auto 0.2 K/mm3 (0-0.3); Eosinophils Percent Auto 3.4 % (0-4.4); Hematocrit 33.8 % (42.0-52.0); Hemoglobin 10.7 g/dL (14.0-18.0); Immature Granulocyte Absolute 0.04 K/mm3 (0.00-0.031); Immature Granulocyte Percent A 0.6 % (0-0.5); Lymphocytes Absolute Auto 1.26 K/mm3 (0.9-3.2); Lymphocytes Percent Auto 18.8 % (18.3-44.2); Mean Corpuscular HGB Conc 31.7 g/dl (32-36); Mean Corpuscular Hemoglobin 30.2 pg (26-34); Mean Corpuscular Volume 95.5 fl (80-100); Mean Platelet Volume 9.5 fl (7.4-10.4); Monocytes Absolute Auto 0.6 K/mm3 (0.1-0.6); Monocytes Percent Auto 8.2 % (2.6-8.5); Neutrophils Absolute Auto 4.6 K/mm3 (1.3-6.7); Neutrophils Percent Auto 68.4 % (45.5-73.1); Platelet Count Result 349 k/mm3 (150-375); Red Blood Count 3.54 M/mm3 (4.6-6.20); Red Cell Distribution Width 13.4 % (11.5-14.5); White Blood Count 6.7 K/mm3 (4.5-10.0)
[2020-03-18 05:12] LABS: Blood Urea Nitrogen 19 mg/dL (9-20); Calcium 9.4 mg/dL (8.4-10.2); Carbon Dioxide 31 mmol/L (22-30); Chloride 104 mmol/L (98-107); Estimated Glomerular Filt Rate > 60; Glucose 96 mg/dL (75-110); Potassium 4.4 mmol/L (3.4-5.0); Sodium 137 mmol/L (137-145)
[2020-03-18] MEDS: GABAPENTIN 300 MG CAPSULE PO ×3 (08:41→16:56)
[2020-03-18] MEDS: AMLODIPINE BESYLATE 5 MG TABLET 10 MG PO (08:41)
[2020-03-18] MEDS: FENOFIBRATE 160 MG TABLET PO (08:43)
[2020-03-18] MEDS: METOPROLOL TARTRATE 25 MG TABLET PO ×2 (08:43→21:54)
[2020-03-18] MEDS: PANTOPRAZOLE 40 MG TABLET PO (08:44)
--- NOTE | 2020-03-18 14:55 | WPDNEURORHBP ---
Subjective Date/time seen: 03/18/20 14:55 Interval history: this 74-year-old who is here who has underlying significant peripheral vascular disease and has had previous right above the knee amputation most recent 1 for which is in the rehab his the left above the knee amputation patient is doing fairly well his pain is currently decently controlled denies any fever chills sore throat headache nausea vomiting abdominal pain or any neurological or other symptoms Review of Systems Review of Systems: All systems reviewed & are unremarkable except as noted in HPI and below Functional Status Transfers Ability Ability to Transfer In/Out of Chair: Contact Guard Exam Const: General: comfortable and no acute distress HENMT: General nose exam: Normal nares present Eyes: General: appearance normal, both eyes and all related structures Neck: Neck: supple and no JVD Resp: Effort & Inspection: normal respiratory effort Auscultation: clear to auscultation bilaterally Cardio: Rate: regular rate Rhythm: regular rhythm GI: GI Palp: Yes Soft to palpation Auscultation: normal bowel sounds Skin: General skin exam: normal color and no rashes or lesions noted Neuro: Other: patient is awake alert has normal speech and language function normal cranial examination normal upper extremity strength of course decreased strength in the bilateral above the knee amputation and needing assistance all the activities of daily living however his progressing in the rehab quite well Extrem: Other: bilateral [id number] amputation stable Psych: Mental Status: mental status grossly normal Objective Data Vital Signs Vital Signs: Vital Signs - 24 hr 03/18/20 21:54 03/18/20 22:00 03/19/20 06:00 Temperature 36.6 C 36.8 C Pulse Rate 76 60 61 Respiratory Rate 18 19 Blood Pressure 111/99 H 115/52 L Pulse Oximetry 98 99 03/19/20 08:27 03/19/20 08:33 03/19/20 12:36 Temperature Pulse Rate 62 64 Respiratory Rate 18 Blood Pressure Pulse Oximetry 95 Intake/Output Intake/Output: Intake & Output 03/16/20 03/17/20 03/18/20 03/19/20 23:59 23:59 23:59 23:59 Intake Total 594 838 0578 480 Balance 467 006 2655 480 Meds/Results Medications: Active Medications Generic Name Dose Route Start Last Admin Trade Name Freq PRN Reason Stop Dose Admin Hydrocodone Bitart/Acetaminophen 1 tab 03/10/20:11 03/18/20 21:54 [place] 7.5-325 Mg PO 1 tab Q4H PRN Administration Pain (Scale Score 7-10) Albuterol 2 puff 03/10/20 18:30 Proventil Hfa INHALATION QID PRN Shortness Of Breath Or Wheezing Amlodipine Besylate 10 mg 03/11/20 09:00 03/19/20 08:33 Norvasc PO 10 mg DAILY CHUNG Administration Aspirin 81 mg 03/10/20 21:00 03/18/20 21:54 Aspirin Ec PO 81 mg HS CHUNG Administration Ergocalciferol 50,000 unit 03/13/20 09:00 03/13/20 08:35 Drisdol PO 50,000 unit Mo@0900 CHUNG Administration Fenofibrate 160 mg 03/11/20 09:00 03/19/20 08:33 Fenofibrate PO 160 mg DAILY CHUNG Administration Gabapentin 300 mg 03/10/20 18:35 03/19/20 13:11 Neurontin PO 300 mg TID CHUNG Administration Lisinopril 40 mg 03/10/20 21:00 03/18/20 21:54 Prinivil PO 40 mg HS [facility]UNG Administration Metoprolol Tartrate 25 mg 03/10/20 21:00 03/19/20 08:33 Lopressor PO 25 mg Q12HR CHUNG Administration Naproxen 500 mg 03/10/20 18:11 03/15/20 06:33 Naproxen PO 500 mg BID PRN Administration Pain (Scale Score 4-6) Nitroglycerin 0.4 mg 03/10/20 18:11 Nitrostat Subl 0.4 Mg (1/150) SUBLINGUAL Q5MIN PRN Chest Pain Pantoprazole Sodium 40 mg 03/11/20 09:00 03/19/20 08:33 Protonix PO 40 mg QAM CHUNG Administration Paroxetine HCl 30 mg 03/10/20 21:00 03/18/20 21:54 Paxil PO 30 mg HS CHUNG Administration Simvastatin 80 mg 03/10/20 21:00 03/18/20 21:54 Zocor PO 80 mg HS CHUNG Administration Tiotropium [place] 1 cap
[2020-03-18] MEDS: ASPIRIN 81 MG ENTERIC TABLET PO (21:54)
[2020-03-18] MEDS: SIMVASTATIN 20 MG TABLET 80 MG PO (21:54)
[2020-03-18] MEDS: lisinopriL 20 MG TABLET 40 MG PO (21:54)
[2020-03-18] MEDS: PAROXETINE 10 MG TABLET 30 MG PO (21:54)
[2020-03-19] VITALS (7 sets, daily range): BP systolic 98–119; BP diastolic 45–52; PULSE 52–76; RESP 18–19; TEMP 36.5–37.7; O2SAT 94–99
[2020-03-19] MEDS: AMLODIPINE BESYLATE 5 MG TABLET 10 MG PO (08:33)
[2020-03-19] MEDS: GABAPENTIN 300 MG CAPSULE PO ×3 (08:33→16:59)
[2020-03-19] MEDS: FENOFIBRATE 160 MG TABLET PO (08:33)
[2020-03-19] MEDS: PANTOPRAZOLE 40 MG TABLET PO (08:33)
[2020-03-19] MEDS: METOPROLOL TARTRATE 25 MG TABLET PO ×2 (08:33→21:19)
--- NOTE | 2020-03-19 16:10 | WPDNEURORHBP ---
Subjective Date/time seen: 03/19/20 16:10 Interval history: this 74-year-old gentleman is here after having had new left above the knee amputation superimposed on of right above the knee amputation which within a few hours ago his demeanor in attitude is quite good doing well denies any chest pain shortness of breath fever chills sore throat headache nausea vomiting and working with therapy quite well Review of Systems Review of Systems: All systems reviewed & are unremarkable except as noted in HPI and below Functional Status Transfers Ability Ability to Transfer In/Out of Chair: Contact Guard Exam Const: General: comfortable and no acute distress HENMT: General nose exam: Normal nares present Mouth: Yes moist mucous membranes Eyes: General: appearance normal, both eyes and all related structures Neck: Neck: supple and no JVD Resp: Effort & Inspection: normal respiratory effort Auscultation: clear to auscultation bilaterally Cardio: Rate: regular rate Rhythm: regular rhythm GI: GI Palp: Yes Soft to palpation Auscultation: normal bowel sounds Skin: General skin exam: normal color and no rashes or lesions noted Neuro: Other: patient's mental status is normal cranial exam shows normal upper extremity strength is quite well his handicapped because of the bilateral above the knee amputation however engage in therapy good motivational factors and happy with the care he is receiving Extrem: Other: bilateral [id number] amputation and the sites are clean Psych: Mental Status: mental status grossly normal Objective Data Vital Signs Vital Signs: Vital Signs - 24 hr 03/18/20 21:54 03/18/20 22:00 03/19/20 06:00 Temperature 36.6 C 36.8 C Pulse Rate 76 60 61 Respiratory Rate 18 19 Blood Pressure 111/99 H 115/52 L Pulse Oximetry 98 99 03/19/20 08:27 03/19/20 08:33 03/19/20 12:36 Temperature Pulse Rate 62 64 Respiratory Rate 18 Blood Pressure Pulse Oximetry 95 03/19/20 14:00 Temperature 36.5 C Pulse Rate 52 L Respiratory Rate 18 Blood Pressure 98/50 L Pulse Oximetry 98 Intake/Output Intake/Output: Intake & Output 03/16/20 03/17/20 03/18/20 03/19/20 23:59 23:59 23:59 23:59 Intake Total 186 902 3505 480 Balance 182 241 1646 480 Meds/Results Medications: Active Medications Generic Name Dose Route Start Last Admin Trade Name Freq PRN Reason Stop Dose Admin Hydrocodone Bitart/Acetaminophen 1 tab 03/10/20 18:11 03/18/20 21:54 [place] 7.5-325 Mg PO 1 tab Q4H PRN Administration Pain (Scale Score 7-10) Albuterol 2 puff 03/10/20 18:30 Proventil Hfa INHALATION QID PRN Shortness Of Breath Or Wheezing Amlodipine Besylate 10 mg 03/11/20 09:00 03/19/20 08:33 Norvasc PO 10 mg DAILY CHUNG Administration Aspirin 81 mg 03/10/20 21:00 03/18/20 21:54 Aspirin Ec PO 81 mg HS [facility] Administration Ergocalciferol 50,000 unit 03/13/20 09:00 03/13/20 08:35 Drisdol PO 50,000 unit Mo@0900 CHUNG Administration Fenofibrate 160 mg 03/11/20 09:00 03/19/20 08:33 Fenofibrate PO 160 mg DAILY CHUNG Administration Gabapentin 300 mg 03/10/20 18:35 03/19/20 13:11 Neurontin PO 300 mg TID CHUNG Administration Lisinopril 40 mg 03/10/20 21:00 03/18/20 21:54 Prinivil PO 40 mg HS CHUNG Administration Metoprolol Tartrate 25 mg 03/10/20 21:00 03/19/20 08:33 Lopressor PO 25 mg Q12HR CHUNG Administration Naproxen 500 mg 03/10/20 18:11 03/15/20 06:33 Naproxen PO 500 mg BID PRN Administration Pain (Scale Score 4-6) Nitroglycerin 0.4 mg 03/10/20 18:11 Nitrostat Subl 0.4 Mg (1/150) SUBLINGUAL Q5MIN PRN Chest Pain Pantoprazole Sodium 40 mg 03/11/20 09:00 03/19/20 08:33 Protonix PO 40 mg QAM CHUNG Administration Paroxetine HCl 30 mg 03/10/20 21:00 03/18/20 21:54 Paxil PO 30 mg HS CHUNG Administration Simvastatin 80 mg 03/10/20 21:00 03/18/20 21:54 Zo
[2020-03-19] MEDS: PAROXETINE 10 MG TABLET 30 MG PO (21:18)
[2020-03-19] MEDS: SIMVASTATIN 20 MG TABLET 80 MG PO (21:19)
[2020-03-19] MEDS: lisinopriL 20 MG TABLET 40 MG PO (21:19)
[2020-03-19] MEDS: ASPIRIN 81 MG ENTERIC TABLET PO (21:19)
[2020-03-20] VITALS (8 sets, daily range): BP systolic 117–122; BP diastolic 51–57; PULSE 67–78; RESP 18–19; TEMP 36.3–37.1; O2SAT 91–97
[2020-03-20] MEDS: PANTOPRAZOLE 40 MG TABLET PO (10:08)
[2020-03-20] MEDS: ERGOCALCIFEROL 50,000 UNIT CAPSULE 50000 UNITS PO (10:08)
[2020-03-20] MEDS: METOPROLOL TARTRATE 25 MG TABLET PO ×2 (10:08→20:24)
[2020-03-20] MEDS: AMLODIPINE BESYLATE 5 MG TABLET 10 MG PO (10:08)
[2020-03-20] MEDS: GABAPENTIN 300 MG CAPSULE PO ×3 (10:09→17:20)
[2020-03-20] MEDS: FENOFIBRATE 160 MG TABLET PO (10:09)
[2020-03-20] MEDS: SIMVASTATIN 20 MG TABLET 80 MG PO (20:24)
[2020-03-20] MEDS: ASPIRIN 81 MG ENTERIC TABLET PO (20:24)
[2020-03-20] MEDS: PAROXETINE 10 MG TABLET 30 MG PO (20:25)
[2020-03-20] MEDS: lisinopriL 20 MG TABLET 40 MG PO (20:25)
[2020-03-21] VITALS (8 sets, daily range): BP systolic 106–147; BP diastolic 50–67; PULSE 53–100; RESP 18–20; TEMP 36.2–38.2; O2SAT 85–94
[2020-03-21] MEDS: AMLODIPINE BESYLATE 5 MG TABLET 10 MG PO (08:25)
[2020-03-21] MEDS: PANTOPRAZOLE 40 MG TABLET PO (08:25)
[2020-03-21] MEDS: METOPROLOL TARTRATE 25 MG TABLET PO ×2 (08:26→20:57)
[2020-03-21] MEDS: GABAPENTIN 300 MG CAPSULE PO ×3 (08:26→17:15)
[2020-03-21] MEDS: FENOFIBRATE 160 MG TABLET PO (08:26)
--- NOTE | 2020-03-21 11:15 | PCOTNOTE ---
Gene Sahu was evaluated for a bariatric bedside commode and tub transfer bench on 03/21/20 by this occupational therapist. The bariatric commode will resolve patient's toileting limitations as he will require an elevated large flat surface bedside commode for toileting and will be unable to ambulate into bathroom independently as he has had bilateral above knee amputations and his wheelchair does not fit into his bathroom to face his toilet as is required for safe and independent completion of toilet transfer. Due to bilateral above knee amputation he transfers by positioning his wheelchair facing the commode with front of wheelchair against front of commode then scooting forward onto the commode and once on commode turning around for completion of toileting. While seated on commode, Mr. Sahu is independent with clothing management and hygiene The bariatric commode will allow for independence with toileting within the home. Mr. Sahu does not require bariatric size commode due to his size but because he requires additional space for safe and independent completion of toilet transfer and toileting. The tub transfer bench will resolve the patients inability to transfer to tub for shower/bathing purposes. Mr. Sahu is unable to step into tub due to bilateral above amputations. The patient reports his wheelchair will allow for direct transfer from chair to tub transfer bench for completion of bathing. The tub transfer bench will allow patient to transfer into tub for shower/bathing purposes within his home. The patient can safely use both the tub transfer bench and bariatric commode within his home, both will resolve the patient's inability to safely and independently complete toileting and bathing in his home.
--- NOTE | 2020-03-21 12:33 | WPDNEURORHBP ---
Subjective Date/time seen: 03/21/20 12:33 Interval history: this 74 years old with the past medical history of significant peripheral vascular disease came to us after having had left [id number] amputation superimposed on the previous right qrwxm-[id number]-disx amputation received the rehab did remarkably well discussed the team conference questions were answered is ready to be discharged tomorrow and achieved the goals The patient denies any headache nausea vomiting chest pain shortness of breath fever chills or sore throat Review of Systems Review of Systems: All systems reviewed & are unremarkable except as noted in HPI and below Functional Status Transfers Ability Ability to Transfer In/Out of Chair: Contact Guard Exam Const: General: comfortable and no acute distress HENMT: General nose exam: Normal nares present Mouth: Yes moist mucous membranes Eyes: General: appearance normal, both eyes and all related structures Neck: Neck: supple and no JVD Resp: Effort & Inspection: normal respiratory effort Auscultation: clear to auscultation bilaterally Cardio: Rate: regular rate Rhythm: regular rhythm GI: GI Palp: Yes Soft to palpation Auscultation: normal bowel sounds Skin: General skin exam: normal color and no rashes or lesions noted Neuro: Other: patient is awake alert of value needed time place and person has normal speech and function normal strength in the upper extremities and stable bilateral hxnow-lpp-jtzd amputation wound looks clean Extrem: Other: bilateral above-knee amputation the wound looks clean Psych: Mental Status: mental status grossly normal Objective Data Vital Signs Vital Signs: Vital Signs - 24 hr 03/20/20 14:00 03/20/20 20:09 03/20/20 20:24 Temperature 36.3 C L Pulse Rate 67 72 Respiratory Rate 18 Blood Pressure 117/57 L Pulse Oximetry 97 94 03/20/20 22:00 03/21/20 06:00 03/21/20 08:26 Temperature 36.5 C 36.2 C L Pulse Rate 68 53 L 53 L Respiratory Rate 19 19 Blood Pressure 122/52 L 106/50 L Pulse Oximetry 94 93 Intake/Output Intake/Output: Intake & Output 03/18/20 03/19/20 03/20/20 03/21/20 23:59 23:59 23:59 23:59 Intake Total 1220 960 960 480 Balance 1220 960 960 480 Meds/Results Medications: Active Medications Generic Name Dose Route Start Last Admin Trade Name Freq PRN Reason Stop Dose Admin Hydrocodone Bitart/Acetaminophen 1 tab 03/10/20 18:11 03/21/20 08:28 [place] 7.5-325 Mg PO 1 tab Q4H PRN Administration Pain (Scale Score 7-10) Albuterol 2 puff 03/10/20 18:30 Proventil Hfa INHALATION QID PRN Shortness Of Breath Or Wheezing Amlodipine Besylate 10 mg 03/11/20 09:00 03/21/20 08:25 Norvasc PO 10 mg DAILY CHUNG Administration Aspirin 81 mg 03/10/20 21:00 03/20/20 20:24 Aspirin Ec PO 81 mg HS [facility] Administration Ergocalciferol 50,000 unit 03/13/20 09:00 03/20/20 10:08 Drisdol PO 50,000 unit Mo@0900 CHUNG Administration Fenofibrate 160 mg 03/11/20 09:00 03/21/20 08:26 Fenofibrate PO 160 mg DAILY CHUNG Administration Gabapentin 300 mg 03/10/20 18:35 03/21/20 12:11 Neurontin PO 300 mg TID CHUNG Administration Lisinopril 40 mg 03/10/20 21:00 03/20/20 20:25 Prinivil PO 40 mg HS [facility] Administration Metoprolol Tartrate 25 mg 03/10/20 21:00 03/21/20 08:26 Lopressor PO 25 mg Q12HR CHUNG Administration Naproxen 500 mg 03/10/20 18:11 03/15/20 06:33 Naproxen PO 500 mg BID PRN Administration Pain (Scale Score 4-6) Nitroglycerin 0.4 mg 03/10/20 18:11 Nitrostat Subl 0.4 Mg (1/150) SUBLINGUAL Q5MIN PRN Chest Pain Pantoprazole Sodium 40 mg 03/11/20 09:00 03/21/20 08:25 Protonix PO 40 mg QAM CHUNG Administration Paroxetine HCl 30 mg 03/10/20 21:00 03/20/20 20:25 Paxil PO 30 mg HS CHUNG Administration Simvastatin 80 mg 03/10/20 21:00 03/20/20 20:24 Zocor PO 80 mg HS CHUNG Administrati
--- NOTE | 2020-03-21 16:04 | HOMEO2EVAL ---
Home Oxygen Evaluation RC: Home Oxygen (O2) Evaluation Start: 03/21/20 09:31 Freq: ONCE Status: Active Protocol: RPE Activity Type Activity Date Activity User E-Sign Co-Sign Detail Recorded Client Recorded Date Recorded By Document 03/21/20 15:30 CONSTANTINO [id number] 03/21/20 16:03 CONSTANTINO Document 03/21/20 15:35 CONSTANTINO [email or web address] 03/21/20 16:03 CONSTANTINO Document 03/21/20 15:40 CONSTANTINO [id number] 03/21/20 16:03 CONSTANTINO 03/21/20 03/21/20 03/21/20 15:30 15:35 15:40 Home O2 Evaluation Test Phase Resting Resting Resting Oxygen Delivery Room Air Nasal Cannula Nasal Cannula Oxygen Flow Rate (L/min) 1 2 Pulse Oximetry (90-100 %) 85 L 87 L 93 Pulse Rate (60-100 beats/min) 100 Home Oxygen Evaluation Comments DID NOT AMBULATE, PT RECENT AMPUTATION Treatment Charges O2 Evaluation
--- NOTE | 2020-03-21 16:36 | PCRCNOTE ---
HOME O2 EVAL DONE, HOME O2 SET UP WITH [facility]. TANK IN ROOM AND READY FOR D/C HOME. RN AWARE. ALL PAPERWORK FAXED TO DME. AWAITING ESIGNED ORDER FROM DR BOYLE
[2020-03-21] MEDS: ASPIRIN 81 MG ENTERIC TABLET PO (20:54)
[2020-03-21] MEDS: lisinopriL 20 MG TABLET 40 MG PO (20:54)
[2020-03-21] MEDS: PAROXETINE 10 MG TABLET 30 MG PO (20:58)
[2020-03-21] MEDS: SIMVASTATIN 20 MG TABLET 80 MG PO (20:58)
[2020-03-22 06:00] VITALS: BP 111/62; PULSE 63; RESP 18; TEMP 37.8; O2SAT 97
[2020-03-22 08:33] VITALS: PULSE 63
[2020-03-22] MEDS: METOPROLOL TARTRATE 25 MG TABLET PO (08:33)
[2020-03-22] MEDS: GABAPENTIN 300 MG CAPSULE PO ×2 (08:33→12:04)
[2020-03-22] MEDS: AMLODIPINE BESYLATE 5 MG TABLET 10 MG PO (08:33)
[2020-03-22] MEDS: FENOFIBRATE 160 MG TABLET PO (08:34)
[2020-03-22] MEDS: PANTOPRAZOLE 40 MG TABLET PO (08:34)
--- NOTE | 2020-03-22 10:00 | PCDIET ---
Nutrition Follow-Up Complete: Nutrition Diagnosis: Increased protein/calorie needs related to increased demands for wound healing as evidenced by recent BKA. Nutrition Goal: Patient to consume 75% of meals/supplement or more Goal met. Agree with regular diet + Mateusz BID. Last recorded weight is 64.6 kg. Recommend obtaining new weight. Bowel Motility: +BM on 03/20/20 Labs Reviewed: Hgb (10.7), Hct (33.8) Meds Noted: Albuterol, Drisdol, Protonix Additional Notes: Left leg incision well approximated with monique. Noted plan for discharge today. Will continue to monitor with same goals if patient remains in house. Nutrition Monitoring and Evaluation: Follow up in 7 days.
--- NOTE | 2020-03-22 13:01 | WPDNEURORHBP ---
Subjective Date/time seen: 03/22/20 13:01 Interval history: this 74-year-old gentleman is ready to be discharged very happy with the care he received denies any headache nausea vomiting chills fever sore throat and looking forward to be going home and follow up with the treating surgeon was performed the left above the knee amputation Review of Systems Review of Systems: All systems reviewed & are unremarkable except as noted in HPI and below Functional Status Transfers Ability Ability to Transfer In/Out of Chair: Contact Guard Exam Const: General: comfortable and no acute distress HENMT: General nose exam: Normal nares present Mouth: Yes moist mucous membranes Eyes: General: appearance normal, both eyes and all related structures Neck: Neck: supple and no JVD Resp: Effort & Inspection: normal respiratory effort Auscultation: clear to auscultation bilaterally Cardio: Rate: regular rate Rhythm: regular rhythm GI: GI Palp: Yes Soft to palpation Auscultation: normal bowel sounds Skin: General skin exam: normal color and no rashes or lesions noted Neuro: Other: patient's mental status is normal cranial exam is normal upper extremity strength is 5/5 he does have bilateral [id number] amputation the systems are clean and he is able to lift them up from sitting in the chair Extrem: Other: bilateral [id number] amputation Psych: Mental Status: mental status grossly normal Objective Data Vital Signs Vital Signs: Vital Signs - 24 hr 03/21/20 14:00 03/21/20 15:30 03/21/20 15:35 Temperature 36.4 C Pulse Rate 79 100 Respiratory Rate 20 Blood Pressure 112/56 L Pulse Oximetry 94 85 L 87 L 03/21/20 15:40 03/21/20 20:57 03/21/20 22:00 Temperature 38.2 C H Pulse Rate 72 84 Respiratory Rate 18 Blood Pressure 147/67 H Pulse Oximetry 93 88 L 03/22/20 06:00 03/22/20 08:33 Temperature 37.8 C H Pulse Rate 63 63 Respiratory Rate 18 Blood Pressure 111/62 Pulse Oximetry 97 Intake/Output Intake/Output: Intake & Output 03/19/20 03/20/20 03/21/20 03/22/20 23:59 23:59 23:59 23:59 Intake Total 270 930 3921 480 Balance 685 267 0595 480 Meds/Results Medications: Active Medications Generic Name Dose Route Start Last Admin Trade Name Freq PRN Reason Stop Dose Admin Hydrocodone Bitart/Acetaminophen 1 tab 03/10/20 18:11 03/21/20 08:28 Morris 7.5-325 Mg PO 1 tab Q4H PRN Administration Pain (Scale Score 7-10) Albuterol 2 puff 03/10/20 18:30 Proventil Hfa INHALATION QID PRN Shortness Of Breath Or Wheezing Amlodipine Besylate 10 mg 03/11/20 09:00 03/22/20 08:33 Norvasc PO 10 mg DAILY CHUNG Administration Aspirin 81 mg 03/10/20 21:00 03/21/20 20:54 Aspirin Ec PO 81 mg HS CHUNG Administration Ergocalciferol 50,000 unit 03/13/20 09:00 03/20/20 10:08 Drisdol PO 50,000 unit Mo@0900 CHUNG Administration Fenofibrate 160 mg 03/11/20 09:00 03/22/20 08:34 Fenofibrate PO 160 mg DAILY CHUNG Administration Gabapentin 300 mg 03/10/20 18:35 03/22/20 12:04 Neurontin PO 300 mg TID CHUNG Administration Lisinopril 40 mg 03/10/20 21:00 03/21/20 20:54 Prinivil PO 40 mg HS CHUNG Administration Metoprolol Tartrate 25 mg 03/10/20 21:00 03/22/20 08:33 Lopressor PO 25 mg Q12HR CHUNG Administration Naproxen 500 mg 03/10/20 18:11 03/15/20 06:33 Naproxen PO 500 mg BID PRN Administration Pain (Scale Score 4-6) Nitroglycerin 0.4 mg 03/10/20 18:11 Nitrostat Subl 0.4 Mg (1/150) SUBLINGUAL Q5MIN PRN Chest Pain Pantoprazole Sodium 40 mg 03/11/20 09:00 03/22/20 08:34 Protonix PO 40 mg QAM CHUNG Administration Paroxetine HCl 30 mg 03/10/20 21:00 03/21/20 20:58 Paxil PO 30 mg HS CHUNG Administration Simvastatin 80 mg 03/10/20 21:00 03/21/20 20:58 Zocor PO 80 mg HS CHUNG Administration Tiotropium Penelope 1 cap 03/11/20 09:00 03/22/20 09:59
--- NOTE | 2020-03-25 17:14 | DS_ITS ---
DATE OF DISCHARGE: 03/22/2020 DISCHARGE PRIMARY REHABILITATION IMPAIRMENT CATEGORY: Amputation of the lower extremity with etiological diagnosis of peripheral vascular disease and status post new left [id number] amputation. DISCHARGE ACTIVE COMORBID CONDITIONS: 1. Peripheral vascular disease. 2. Previous right above-knee amputation. 3. Coronary artery disease with history of coronary artery bypass grafting x3. 4. Chronic obstructive pulmonary disease. 5. Peptic ulcer disease. REASON FOR ADMISSION: The patient initially presented to [facility] on 03/04/2020 via EMS complaining of black stool with vomiting and NG tube was placed in right away. Vp Of Marketing was consulted. He was no longer vomiting and hemodynamically was stable. It was planned to treat the patient with proton pump inhibitor along with the monitoring of the hemoglobin and avoidance of the nonsteroidal anti-inflammatory medication and anticoagulation. NG tube was discontinued. He was noted to have UTI for which he was treated with antibiotics. Initial examination was consistent with extensive ischemic change and gangrene in the left foot along with the contracture of the left knee. Left limb was not salvageable. He underwent amputation above the left knee on 01/07/2020. Postoperatively, developed pain, anemia, hypertension, atrial fibrillation, managed with oral pain medication, but hemodynamically he was stable. For atrial fibrillation, he needed metoprolol to prevent the recurrence and hypertension was also treated with antihypertensive medications. The patient had not traveled outside the [place] or had contact with someone who was ill or that had travel outside the [place] in the past 21 days. He had not traveled himself to an area of the [place] that had experienced any unknown transmission of the [place] virus and no personal contact with anyone that has the [place] virus. He himself had no fever, no respiratory difficulties, though he does have COPD by history along with bronchial asthma and emphysema at the baseline. LEVEL OF FUNCTION AT THE TIME OF ADMISSION: Level of function at the time of admission to the [facility], he was independent in eating, required setup for oral hygiene, partial assistance for toileting, bathing, upper body dressing, lower body dressing. He was independent for rolling in bed, sit to lying, lying to sitting. Sit to stand was not applicable. He required substantial assistance for chair transfer and he was dependent for toilet transfer also. He was unable to car transfer. Rest of the modalities were not applicable. He was independent for wheelchair 50 and 150 feet. ANTICIPATED REHAB GOALS AT THE TIME OF ADMISSION: Anticipated rehab goals at the time of admission were to make him independent eating, oral hygiene, toileting, bathing, upper body dressing, lower body dressing, rolling in bed, sit to lying, lying to sitting, chair transfer, toilet transfer, and bring him to partial assistance level for the car transfer. Rest of the modalities were not applicable and make him independent for wheelchair for 50 and 150 feet. LEVEL OF FUNCTION AT THE TIME OF DISCHARGE: The patient became independent eating and oral hygiene and toileting. He required only setup for the bathing, became independent upper body dressing and lower body dressing. Footwear not applicable. He became independent rolling in bed, sit to lying, lying to sitting. Sit to stand was not applicable. He became independent chair transfer, toilet transfer, required supervision for car transfer and remained independent wheelchair 50 and 150 feet. Rest of the modalities were obviously not applicable. HOSPITAL COURSE: During the hospitalization, he remained afebrile, normotensive. No other consultants were
== END 2020-03-22 14:25 | disposition home health service (06) | DRG 561 ==
PROVIDERS: Admitting Provider Psychiatry & Neurology Neurology; Visit Provider Psychiatry & Neurology Neurology
DX: Z47.81 Encounter for orthopedic aftercare following surgical amputation (principal); I73.9 Peripheral vascular disease, unspecified; Z89.612 Acquired absence of left leg above knee; Z89.611 Acquired absence of right leg above knee; E78.5 Hyperlipidemia, unspecified; F17.290 Nicotine dependence, other tobacco product, uncomplicated; G62.9 Polyneuropathy, unspecified; I12.9 Hypertensive chronic kidney disease with stage 1 through stage 4 chronic kidney disease, or unspecified chronic kidney disease; I48.91 Unspecified atrial fibrillation; I25.2 Old myocardial infarction; I25.10 Atherosclerotic heart disease of native coronary artery without angina pectoris; J43.9 Emphysema, unspecified; J45.909 Unspecified asthma, uncomplicated; K29.70 Gastritis, unspecified, without bleeding; K58.9 Irritable bowel syndrome, unspecified; K27.9 Peptic ulcer, site unspecified, unspecified as acute or chronic, without hemorrhage or perforation; N20.0 Calculus of kidney; N18.9 Chronic kidney disease, unspecified; Z96.641 Presence of right artificial hip joint; Z95.1 Presence of aortocoronary bypass graft
CPT/HCPCS: 36415; 80048; 85025; 94618; 94640; 97110; 97162; 97166; 97530; 97535; 97542; A9270